=== PATIENT | female | born 1995 | race Caucasian/White ===

== ENCOUNTER 2022-11-24 07:55 | Inpatient (IN) ==
[2022-11-24] MEDS ORDERED: OXYTOCIN 30 UNITS/500 ML BAG IV PRN (09:40)
[2022-11-24] MEDS ORDERED: LIDOCAINE 1% LOCAL 20 ML VIAL INFIL PRN (09:40)
[2022-11-24] MEDS ORDERED: PENICILLIN G POTASSIUM 6 MU in DEXTROSE 5% 250 ML IV ONE (10:00)
[2022-11-24] MEDS ORDERED: DINOPROSTONE 10 MG INSERT PV ONE (10:22)
--- NOTE | 2022-11-24 10:28 | History & Physical Report ---
Date of Service November 24, 2022 Assessment & Plan Admission and Anticipated Discharge Date Admission Date: November 24, 2022 History of Present Illness Chief Complaint: induction of labor for post-dates Primary Care Provider: Mikki Barrera MD 26 F P0000 at 41 weeks admitted to L&D for induction of labor for post-dates . GBS is positive. Allergies Allergy/AdvReac Type Severity Reaction Status Date / Time amoxicillin Allergy Rash Verified 11/24/22 08:34 erythromycin base Allergy Unknown Verified 11/24/22 08:34 [From Erythrocin] Home Medications Medication Instructions Recorded Confirmed Type levothyroxine 25 mcg tablet 25 mcg PO DAILY 11/24/22 11/24/22 History [id number] 1 mg 1 tab PO DAILY 11/24/22 11/24/22 History tablet Patient History Medical History Anxiety no meds Hypothyroidism found this Panic attacks Surgical History No history of previous surgery Family History Other No known health problems Social History Smoking Status: Never smoker Hx Alcohol Use: No Hx Substance Use: No Preferred Language: Swazi Visual Impairment: Limited Thread Spooler Required: No Beliefs That Will Affect Care: None marital status: marital status details: Dk [place] Current Living Situation: Spouse Current Living Situation Comment: lives with current occupational status: employed current occupation: [email or web address] Feels Safe at Home: Yes Safety Concerns: Feels Safe At This Time Assistive Devices: Glasses OB History primip [employer] DEVELOPER History neg Review of Systems All systems reviewed & are unremarkable except as noted in HPI & below Physical Exam Constitutional: WD/WN, vitals as above Eyes: PERRL, conjunctivae normal, anicteric sclerae Respiratory: normal respiratory effort, lungs clear to auscultation Cardiovascular: RRR, no murmur, no edema Gastrointestinal (Abdomen): Inspection/Auscultation: abdomen normal to inspection Skin: no rashes, warm and dry Neurologic: patellar DTR's 2+ bilat, sensation intact Psychiatric: A+Ox3, euthymic affect Genitourinary: no vaginal lesions, no adnexal mass OB Exam Abdomen: + fundal height and + vertex Manual OB Exam: + cervical dilation fingertip, + cervical effacement 50% and + station high OB Exam Monitor Tracing: + processor inspector al FHT monitor used, + external uterine monitor used and + category I cervix l/c/t posterior/firm EFW 8 lbs. Results & Data Vital Signs (Past 12 Hours) Vital Signs Temp Pulse Resp BP O2 Del Method 11/24/22 08:25 37.1 C 18 Room Air 11/24/22 08:16 80 129/78 Code Status & VTE Plan VTE Prophylaxis Plan VTE Prophylaxis will be ordered: No Monitoring External Monitor Cat 1
[2022-11-24 10:29] LABS: Hematocrit (blood only) 35.5 % (37.0-47.0); Hemoglobin 12.2 g/dl (12.0-16.0); Mean Corpuscular Hemoglobin 27.6 pg (25.0-34.0); Mean Corpuscular Hgb Conc 34.4 g/dL (32.0-36.0); Mean Corpuscular Volume 80.3 fL (80.0-100.0); Mean Platelet Volume 10.6 fL (9.4-12.4); Platelet Count 229 K/uL (130-400); RDW Coefficient of Variation 15.1 % (11.5-14.5); RDW Standard Deviation 44.1 fL (36.4-46.3); Red Blood Count 4.42 M/uL (4.20-5.40); White Blood Count 9.18 K/ul (4.8-10.8)
--- NOTE | 2022-11-24 10:44 | Labor Progress Brief Note ---
Date of Service November 24, 2022 Assessment & Plan Admission and Anticipated Discharge Date Admission Date: November 24, 2022 Physical Exam Genitourinary: OB Exam Monitor Tracing: + external FHT monitor used, + external uterine monitor used, + category I and + normal FHT variability Cervidil 10 mg placed vaginally Results & Data Vital Signs (Past 12 Hours) Vital Signs Temp Pulse Resp BP O2 Del Method 11/24/22 08:25 37.1 C 18 Room Air 11/24/22 08:16 80 129/78
[2022-11-25] MEDS ORDERED: miSOPROStoL 50 MCG TAB PO PRN (00:01)
[2022-11-25] MEDS ORDERED: SODIUM CHLORIDE 0.9% PF INJ 10 ML VIAL ONE (05:27)
[2022-11-25] MEDS ORDERED: LIDOCAINE 2%/EPINEPHRINE 1:200,000 20 ML PF ONE (05:27)
[2022-11-25] MEDS ORDERED: fentaNYL citrate PF 100 MCG/2 ML VIAL ONE (05:27)
[2022-11-25] MEDS ORDERED: ePHEDrine sulfate 50 MG/ML AMP ONE (05:27)
[2022-11-25] MEDS ORDERED: BUPIVACAINE 0.25% PF 30 ML VIAL ONE (05:27)
[2022-11-25] MEDS ORDERED: fentaNYL 2MCG/ML ROPIVACAINE 1.25MG/ML 100 ML BAG EPI ONE (05:28)
[2022-11-25] MEDS: LACTATED RINGER'S 1,000 ML IV PRN ×4 (05:37→18:08)
[2022-11-25] MEDS ORDERED: fentaNYL 2MCG/ML ROPIVACAINE 1.25MG/ML 100 ML BAG EPI PRN (06:24)
[2022-11-25] MEDS ORDERED: LIDOCAINE 2%/EPINEPHRINE 1:200,000 20 ML PF EPI STA (06:24)
[2022-11-25] MEDS ORDERED: SODIUM CHLORIDE 0.9% PF INJ 10 ML VIAL EPI PRN (06:24)
[2022-11-25] MEDS ORDERED: ROPIVACAINE 0.5% PF 5 MG/ML 20 ML VIAL EPI PRN (06:24)
[2022-11-25] MEDS ORDERED: fentaNYL citrate PF 100 MCG/2 ML VIAL EPI PRN (06:24)
[2022-11-25] MEDS ORDERED: ePHEDrine sulfate 50 MG/ML AMP IV PRN (06:24)
[2022-11-25] MEDS ORDERED: LIDOCAINE 2% MPF LOCAL 5 ML VIAL EPI PRN (06:24)
[2022-11-25] MEDS ORDERED: diphenhydrAMINE 50 MG/ML VIAL IV PRN (06:24)
[2022-11-25] MEDS ORDERED: fentaNYL citrate PF 100 MCG/2 ML VIAL EPI STA (06:24)
[2022-11-25] MEDS ORDERED: ONDANSETRON INJ 2 MG/ML 2 ML VIAL IV PRN (06:24)
[2022-11-25] MEDS ORDERED: NALOXONE HCL 0.4 MG/1 ML VIAL/CARP IV PRN (06:24)
[2022-11-25] MEDS ORDERED: NALOXONE HCL 1 MG in SODIUM CHLORIDE 0.9% 1,000 ML IV PRN (06:24)
[2022-11-25] MEDS ORDERED: BUPIVACAINE 0.25% PF 30 ML VIAL EPI PRN (06:24)
[2022-11-25] MEDS ORDERED: SODIUM CHLORIDE 0.9% PF INJ 10 ML VIAL EPI STA (06:24)
[2022-11-25] MEDS ORDERED: BUPIVACAINE 0.25% PF 30 ML VIAL EPI STA (06:24)
[2022-11-25] MEDS ORDERED: NALBUPHINE HCL INJ 10 MG/ML AMP IV PRN (06:24)
--- NOTE | 2022-11-25 06:24 | Anesthesiology Consultation ---
Date of Service November 25, 2022 Assessment & Plan ASA ASA2 Proposed Anesthesia Anesthesia Type: Labor Epidural Risk / Benefits Reviewed With: PT / POA / Parent / Guardian, Accepts Plan and Informed Consent Obtained History Height/Weight Height: 5 ft 4 in Weight: 104.326 kg Allergies Allergy/AdvReac Type Severity Reaction Status Date / Time amoxicillin Allergy Rash Verified 11/24/22 08:34 erythromycin base Allergy Unknown Verified 11/24/22 08:34 [From Erythrocin] Medications Home Medications Medication Instructions Recorded Confirmed Last Taken levothyroxine 25 mcg tablet 25 mcg PO DAILY 11/24/22 11/24/22 11/23/22 [id number] 1 mg 1 tab PO DAILY 11/24/22 11/24/22 11/23/22 tablet Active Medications Generic Name Dose Route Start Last Admin Trade Name Freq PRN Reason Stop Dose Admin Lactated Ringer's 1,000 mls @ 125 mls/hr 11/24/22 09:40 11/25/22 05:37 Lr IV 11/26/22 09:39 999 mls/hr .Q8H PRN Administration L&D Protocol Protocol Misoprostol 50 mcg 11/25/22 00:01 11/25/22 00:01 Misoprostol 50 Mcg Tab PO 12/25/22 00:00 50 mcg Q4 PRN Administration labor Past Medical History Medical History Anxiety no meds Hypothyroidism found this Panic attacks Exercise / Class Metabolic Activity II 4-5 Yardwork/Stairs/Walk up hill Past Family History Family History Other No known health problems Past Surgical History Surgical History No history of previous surgery Past Anesthesia History No Hx of Anesthesia Complications and No Family Hx of Anesthesia Complications History of PONV No Hx of PONV and No Hx of Motion Sickness Social History Smoking Status: Never smoker Hx Alcohol Use: No Hx Substance Use: No substance use type: does not use Review of Systems denies fever/cough/ colds/ chest pain/ SOB/ RADHA denies RADHA Physical Exam Vital Signs Last Vital Signs Temp 36.8 C 11/25/22 03:01 Pulse 100 H 11/25/22 06:20 Resp 18 11/25/22 03:01 BP 128/81 11/25/22 06:23 Pulse Ox 97 11/25/22 06:19 O2 Del Method Room Air 11/24/22 08:25 ENMT Mouth: no TMJ abnormality and no dentition abnormality Thyromental Distance: > or= 3.5 Finger Breadths Mallampati Class: II Neck neck extension not limited Respiratory normal respiratory effort; no respiratory distress Auscultation: lungs clear to auscultation bilaterally Cardiovascular Rate/Rhythm: regular rate and regular rhythm Neurologic moves all extremities Psychiatric Orientation: alert and oriented x 3 Testing Laboratory Results 11/24/22 09:56 Blood Type A Positive 11/24/22 09:56 Antibody Screen NEGATIVE 11/24/22 09:56
--- NOTE | 2022-11-25 09:05 | Labor Progress Brief Note ---
Date of Service November 25, 2022 Subjective pelvic exam Assessment & Plan (1) Normal labor: Plan continue monitoring labor down second dose of antibiotics to start for GBS positive status. Admission and Anticipated Discharge Date Admission Date: November 24, 2022 Physical Exam Constitutional: WD/WN, vitals as above Genitourinary: OB Exam Abdomen: + heart tones (140s) and + vertex Manual OB Exam: + cervical dilation 8 cm, + cervical effacement 80%, + station 0 and + amniotic fluid clear OB Exam Monitor Tracing: + external FHT monitor used and + category I Results & Data Vital Signs (Past 12 Hours) Vital Signs Temp Pulse Resp BP Pulse Ox 11/25/22 08:59 85 L 11/25/22 08:59 98 H 11/25/22 08:59 92 H 77 L 11/25/22 08:54 91 H 85 L 11/25/22 08:51 88 138/87 11/25/22 08:49 89 93 11/25/22 08:44 97 H 93 11/25/22 08:43 100 H 85 L 11/25/22 08:39 100 H 92 11/25/22 08:37 88 11/25/22 08:37 103 H 115/81 86 L 11/25/22 08:34 92 H 93 11/25/22 08:29 88 94 11/25/22 08:24 84 94 11/25/22 08:20 93 H 123/76 11/25/22 08:19 81 91 11/25/22 08:14 85 94 11/25/22 08:09 104 H 92 11/25/22 08:06 85 121/77 11/25/22 08:04 78 92 11/25/22 07:59 77 94 11/25/22 07:54 99 H 98 11/25/22 07:52 106 H 115/72 11/25/22 07:49 79 94 11/25/22 07:44 99 H 95 11/25/22 07:39 85 93 11/25/22 07:36 84 117/74 11/25/22 07:34 78 93 11/25/22 07:29 80 95 11/25/22 07:24 91 H 99 11/25/22 07:22 93 H 125/72 11/25/22 07:19 78 98 11/25/22 07:14 95 H 95 11/25/22 07:09 87 97 11/25/22 07:07 36.8 C 99 H 18 131/76 11/25/22 07:04 101 H 96 11/25/22 07:02 111 H 89 L 11/25/22 06:59 98 H 97 11/25/22 06:54 84 98 11/25/22 06:53 83 137/79 11/25/22 06:49 92 H 95 11/25/22 06:44 95 H 96 11/25/22 06:39 90 98 11/25/22 06:34 100 H 130/77 95 11/25/22 06:29 87 11/25/22 06:29 92 H 127/64 94 11/25/22 06:24 97 H 95 11/25/22 06:23 98 H 128/81 11/25/22 06:20 100 H 122/71 11/25/22 06:19 84 97 11/25/22 06:18 96 H 122/71 11/25/22 06:16 92 H 127/77 11/25/22 06:14 98 H 93 11/25/22 06:15 79 128/75 11/25/22 06:12 90 133/83 11/25/22 06:09 100 H 88 L 11/25/22 06:04 88 96 11/25/22 05:59 78 97 11/25/22 05:54 77 97 11/25/22 05:49 74 96 11/25/22 05:44 82 94 11/25/22 05:39 93 H 94 11/25/22 03:01 36.8 C 78 18 131/67 11/24/22 23:49 36.7 C 88 18 116/55 L
[2022-11-25] MEDS: PENICILLIN G POTASSIUM 3 MU in DEXTROSE 5% 100 ML IV PRN ×3 (09:58→18:22)
[2022-11-25] MEDS ORDERED: OXYTOCIN 30 UNITS/500 ML BAG IV SCH (13:45)
[2022-11-25] MEDS ORDERED: OXYTOCIN 30 UNITS/500 ML BAG IV PRN (14:17)
[2022-11-25] MEDS ORDERED: NURSING L&D Epidural Breakthrough Pain Update ONE (15:14)
[2022-11-25] MEDS ORDERED: miSOPROStoL 200 MCG TAB ONE ×2 (19:11→19:36)
[2022-11-25] MEDS ORDERED: DIPHTHERIA/TETANUS/PERTUSSIS Vaccine (Tdap, Age 7+yrs) 0.5mL SYR/VL IM ONE (19:25)
[2022-11-25] MEDS ORDERED: miSOPROStoL 200 MCG TAB PR ONE (19:25)
[2022-11-25] MEDS ORDERED: BENZOCAINE 20% SPRY 85 APPLN/85 GM CAN EXT PRN (19:25)
[2022-11-25] MEDS ORDERED: ACETAMINOPHEN 325 MG TAB PO PRN (19:25)
[2022-11-25] MEDS ORDERED: bisacodyL 10 MG SUPP PR PRN (19:25)
[2022-11-25] MEDS ORDERED: HYDROCORTISONE ACETATE 25 MG SUPP PR PRN (19:25)
--- NOTE | 2022-11-25 19:35 | Obstetrical Progress Note ---
Date of Service November 25, 2022 Assessment & Plan (1) Vaginal delivery: Physical Exam Constitutional WD/WN, vitals as above Genitourinary no vaginal lesions, no adnexal mass pt fully dilated and pushing, placed in dorsal lithotomy position, prepped and draped in usual fashion, pushed for couple of hrs, delivered alive viable female infant in CRYSTAL position, placed the infant on the mothers abdomen, bulb suctioned nose and mouth, cord clamped and cut by the FOB. Placenta delivered spontaneously and complete. Heavy vaginal bleeding noted, 1000 mcg of [place] Cytotec placed , IV Pitocin started, second degree vaginal laceration noted, local lidocaine injected, repaired with 2.0 vicryl. APGARS: 8, 9 at 1 and 5 min baby born at 19: 21 Placenta delivered : 19: 24 Blood loss: 500 cc Results & Data Vital Signs (Past 12 Hours) Vital Signs Temp Pulse Resp BP Pulse Ox 11/25/22 19:22 85 L 11/25/22 19:22 104 H 11/25/22 19:22 106 H 95 11/25/22 19:19 88 123/68 11/25/22 19:17 120 H 76 L 11/25/22 19:15 114 H 87 L 11/25/22 19:12 126 H 129/63 78 L 11/25/22 19:10 119 H 85 L 11/25/22 19:07 101 H 82 L 11/25/22 19:05 99 H 87 L 11/25/22 19:02 106 H 94 11/25/22 18:57 122 H 94 11/25/22 18:52 115 H 153/98 H 92 11/25/22 18:49 110 H 86 L 11/25/22 18:46 101 H 92 11/25/22 18:43 95 H 84 L 11/25/22 18:41 110 H 135/64 11/25/22 18:39 113 H 94 11/25/22 18:38 108 H 82 L 11/25/22 18:37 117 H 188/114 H 11/25/22 18:36 121 H 194/116 H 11/25/22 18:34 109 H 94 11/25/22 18:32 101 H 84 L 11/25/22 18:28 106 H 84 L 11/25/22 18:23 89 L 11/25/22 18:23 109 H 10/05/23 18:23 104 H 92 11/25/22 18:22 97 H 115/85 11/25/22 18:18 98 H 99 11/25/22 18:17 22 11/25/22 18:17 37.0 C 22 11/25/22 18:16 111 H 77 L 11/25/22 18:13 102 H 96 11/25/22 18:11 119 H 85 L 11/25/22 18:08 106 H 97 11/25/22 18:06 93 H 85 L 11/25/22 18:04 24 11/25/22 18:04 24 11/25/22 18:03 103 H 96 11/25/22 18:00 106 H 87 L 11/25/22 17:58 111 H 98 11/25/22 17:53 122 H 88 L 11/25/22 17:51 102 H 133/73 11/25/22 17:48 103 H 97 11/25/22 17:46 107 H 84 L 11/25/22 17:42 114 H 98 11/25/22 17:37 111 H 140/81 82 L 11/25/22 17:32 109 H 86 L 11/25/22 17:25 93 H 82 L 11/25/22 17:22 101 H 88 L 11/25/22 17:21 100 H 131/100 11/25/22 17:20 103 H 89 L 11/25/22 17:17 99 H 89 L 11/25/22 17:15 106 H 97 11/25/22 17:11 93 H 87 L 11/25/22 17:10 97 H 92 11/25/22 17:07 90 141/90 H 11/25/22 17:05 94 H 94 11/25/22 17:04 99 H 87 L 11/25/22 17:00 36.9 C 101 H 20 91 11/25/22 16:59 105 H 89 L 11/25/22 16:55 101 H 100 11/25/22 16:53 103 H 85 L 11/25/22 16:51 104 H 128/82 11/25/22 16:50 102 H 99 11/25/22 16:47 101 H 86 L 11/25/22 16:45 101 H 95 11/25/22 16:40 85 L 11/25/22 16:40 90 11/25/22 16:40 89 96 11/25/22 16:36 77 140/84 11/25/22 16:35 78 98 11/25/22 16:30 77 85 L 11/25/22 16:25 73 94 11/25/22 16:21 70 20 123/68 11/25/22 16:20 81 87 L 11/25/22 16:18 77 88 L 11/25/22 16:15 72 99 11/25/22 16:10 76 99 11/25/22 16:07 77 127/69 11/25/22 16:05 83 93 11/25/22 16:03 74 89 L 11/25/22 16:00 74 97 11/25/22 15:55 68 94 11/25/22 15:51 67 131/69 11/25/22 15:50 71 93 11/25/22 15:45 86 93 11/25/22 15:40 67 95 11/25/22 15:36 70 20 106/54 L 11/25/22 15:35 84 97 11/25/22 15:30 71 95 11/25/22 15:25 69 96 11/25/22 15:20 70 11/25/22 15:20 69 105/57 L 96 11/25/22 15:15 71 97 11/25/22 15:10 72 99 11/25/22 15:06 69 20 106/59 L 11/25/22 15:04 81 88 L 11/25/22 15:05 75 95 11/25/22 15:00 37.0 C 76 18 92 11/25/22 14:58 90 148/63 H 11/25/22 14:56 97 H 85 L 11/25/22 14:55 86 99 11/25/22 14:51 77 143/78 H 11/25/22 14:50 70 95 11/25/22 14:45 69 97 11/25/22 14:42 85 89 L 11/25/22 14:40 68 96 11/25/22 14:37 65 145/76 H 11/25/22 14:35 68 97 11/25/22 14:30 84 98 11/25/22 14:25 73 99 11/25/22 14:23 78 158/82 H 11/25/22 14:20 73 98 11/25/22 14:15 84 96 11/25/22 14:12 95 H 89 L 11/25/22 14:01 18 11/25/22 14:01 36.9 C 18 11/25/22 14:10 72 97 11/25/22 14:06 96 H 130/79 11/25/22 14:05 82 96 11/25/22 14:00 86 96 11/25/22 13:55 85 99 11/25/22 13:51 69 134/80 11/25/22 13:50 75 94 11/25/22 13:45 67 95 11/25/22 13:40 88 94 11/25/22 13:37 85 145/76 H 11/25/22 13:36 84 85 L 11/25/22 13:35 96 H 100 11/25/22 13:29 83 88 L 11/25/22 13:30 87 95 11/25/22 13:25 82 98 11/25/22 13:21 79 130/80 11/25/22 13:20 84 100 11/25/22 13:15 81 97 11/25/22 13:10 75 99 11/25/22 13:06 75 139/74 11/25/22 13:05 82 96 11/25/22 13:00 76 96 11/25/22 12:59 77 86 L 11/25/22 12:55 76 100 11/25/22 12:51 87 126/78 11/25/22 12:50 79 99 11/25/22 12:45 81 99 11/25/22 12:40 81 100 11/25/22 12:37 81 123/66 11/25/22 12:35 88 98 11/25/22 12:30 79 100 11/25/22 12:25 70 95 11/25/22 12:21 71 109/55 L 87 L 11/25/22 12:20 36.8 C 77 18 98 11/25/22 12:15 71 96 11/25/22 12:10 75 96 11/25/22 12:07 72 107/54 L 11/25/22 12:05 75 99 11/25/22 12:00 77 99 11/25/22 11:55 68 98 11/25/22 11:51 78 112/59 L 11/25/22 11:50 74 99 11/25/22 11:45 72 99 11/25/22 11:41 91 H 85 L 11/25/22 11:40 75 82 L 11/25/22 11:36 81 135/73 11/25/22 11:35 85 89 L 11/25/22 11:30 86 89 L 11/25/22 11:25 83 86 L 11/25/22 11:22 80 137/87 11/25/22 11:20 84 87 L 11/25/22 11:19 84 88 L 11/25/22 11:13 74 88 L 11/25/22 11:14 78 95 11/25/22 11:09 75 95 11/25/22 11:07 83 87 L 11/25/22 11:06 72 144/80 H 11/25/22 11:04 74 91 11/25/22 10:59 74 16 95 11/25/22 10:54 82 93 11/25/22 10:52 84 142/77 H 11/25/22 10:49 71 93 11/25/22 10:44 74 92 11/25/22 10:39 82 85 L 11/25/22 10:37 74 138/76 11/25/22 10:34 84 93 11/25/22 10:29 86 89 L 11/25/22 10:24 85 94 11/25/22 10:21 81 86 L 11/25/22 10:20 74 133/78 11/25/22 10:19 73 94 11/25/22 10:14 76 94 11/25/22 10:09 89 95 11/25/22 08:02 20 11/25/22 08:02 20 11/25/22 09:01 18 11/25/22 09:01 18 11/25/22 10:00 18 11/25/22 10:00 36.7 C 18 11/25/22 10:06 90 127/74 11/25/22 10:04 95 H 95 11/25/22 09:59 100 H 94 11/25/22 09:54 79 93 11/25/22 09:51 73 127/79 11/25/22 09:49 79 91 11/25/22 09:44 77 93 11/25/22 09:39 83 92 11/25/22 09:36 91 H 138/75 11/25/22 09:33 100 H 87 L 11/25/22 09:34 101 H 95 11/25/22 09:29 105 H 92 11/25/22 09:24 100 H 86 L 11/25/22 09:22 102 H 87 L 11/25/22 09:20 93 H 144/80 H 11/25/22 09:19 104 H 89 L 11/25/22 09:16 113 H 88 L 11/25/22 09:14 117 H 84 L 11/25/22 09:09 97 H 94 11/25/22 09:06 91 H 129/73 11/25/22 09:04 89 L 11/25/22 09:04 97 H 11/25/22 09:04 100 H 82 L 11/25/22 08:59 85 L 11/25/22 08:59 98 H 11/25/22 08:59 92 H 77 L 11/25/22 08:54 91 H 85 L 11/25/22 08:51 88 138/87 11/25/22 08:49 89 93 11/25/22 08:44 97 H 93 11/25/22 08:43 100 H 85 L 11/25/22 08:39 100 H 92 11/25/22 08:37 88 11/25/22 08:37 103 H 115/81 86 L 11/25/22 08:34 92 H 93 11/25/22 08:29 88 94 11/25/22 08:24 84 94 11/25/22 08:20 93 H 123/76 11/25/22 08:19 81 91 11/25/22 08:14 85 94 11/25/22 08:09 104 H 92 11/25/22 08:06 85 121/77 11/25/22 08:04 78 92 11/25/22 07:59 77 94 11/25/22 07:54 99 H 98 11/25/22 07:52 106 H 115/72 11/25/22 07:49 79 94 11/25/22 07:44 99 H 95 11/25/22 07:39 85 93 11/25/22 07:36 84 117/74 11/25/22 07:34 78 93 11/25/22 07:29 80 95
[2022-11-25] MEDS: IBUPROFEN 600 MG TAB PO PRN (20:42)
[2022-11-25] MEDS: DOCUSATE SODIUM 100 MG CAP PO SCH (21:04)
[2022-11-26] MEDS: IBUPROFEN 600 MG TAB PO PRN ×4 (01:08→20:17)
[2022-11-26 07:36] LABS: Hematocrit (blood only) 27.3 % (37.0-47.0); Hemoglobin 9.2 g/dl (12.0-16.0); Mean Corpuscular Hemoglobin 27.8 pg (25.0-34.0); Mean Corpuscular Hgb Conc 33.7 g/dL (32.0-36.0); Mean Corpuscular Volume 82.5 fL (80.0-100.0); Mean Platelet Volume 10.7 fL (9.4-12.4); Platelet Count 173 K/uL (130-400); RDW Coefficient of Variation 15.2 % (11.5-14.5); RDW Standard Deviation 45.8 fL (36.4-46.3); Red Blood Count 3.31 M/uL (4.20-5.40); White Blood Count 18.95 K/ul (4.8-10.8)
--- NOTE | 2022-11-26 08:15 | Obstetrical Progress Note ---
Date of Service November 26, 2022 Assessment & Plan Admission and Anticipated Discharge Date Admission Date: November 24, 2022 Subjective Patient is seen and examined. She feels well, no complaints. Ambulating without dizziness Voiding without difficulty Tolerating regular diet with out N&V Bleeding is minimal No fever/ chills/ CP/ SOB/ N&V/ Leg pain Breast feeding without problems Vital Signs Temp Pulse Pulse Resp BP BP Pulse Ox 11/26/22 07:30 36.6 C 81 18 123/73 97 11/26/22 04:15 36.7 C 89 18 119/65 96 11/25/22 23:45 36.9 C 93 H 18 117/68 97 11/25/22 21:30 37.2 C 18 11/25/22 20:49 18 11/25/22 20:19 18 11/25/22 21:19 100 H 131/72 11/25/22 21:04 109 H 124/60 11/25/22 20:49 88 132/60 11/25/22 20:34 96 H 151/67 H 11/25/22 20:19 94 H 151/66 H O2 Del Method 11/26/22 07:30 Room Air 11/26/22 04:15 Room Air 11/25/22 23:45 Room Air 11/25/22 21:30 11/25/22 20:49 11/25/22 20:19 11/25/22 21:19 11/25/22 21:04 11/25/22 20:49 11/25/22 20:34 11/25/22 20:19 Lab Results 11/24/22 11/24/22 11/26/22 Range/Units 09:56 09:56 06:44 WBC 9.18 18.95 H (4.8-10.8) K/ul RBC 4.42 3.31 L (4.20-5.40) M/uL Hgb 12.2 9.2 L D (12.0-16.0) g/dl Hct 35.5 L 27.3 L (37.0-47.0) % MCV 80.3 82.5 (80.0-100.0) fL MCH 27.6 27.8 (25.0-34.0) pg MCHC 34.4 33.7 (32.0-36.0) g/dL RDW Std Deviation 44.1 45.8 (36.4-46.3) fL RDW Coeff of Yariel 15.1 H 15.2 H (11.5-14.5) % Plt Count 229 173 (130-400) K/uL MPV 10.6 10.7 (9.4-12.4) fL Blood Type A Positive Antibody Screen NEGATIVE PE: General: Alert, orientedx3, NAD Abd: soft, NT, fundus firm, below Umbilicus Perineum intact, Lochia rubra minimal Ext; NT, no edema AP: 26 yo s/p , ppd# 1 VSS Afebrile doing well CBC in am Continue routine care All questions were answered D/C home tomorrow Results & Data Vital Signs (Past 12 Hours) Vital Signs Temp Pulse Pulse Resp BP BP Pulse Ox 11/26/22 07:30 36.6 C 81 18 123/73 97 11/26/22 04:15 36.7 C 89 18 119/65 96 11/25/22 23:45 36.9 C 93 H 18 117/68 97 11/25/22 21:30 37.2 C 18 11/25/22 20:49 18 11/25/22 20:19 18 11/25/22 21:19 100 H 131/72 11/25/22 21:04 109 H 124/60 11/25/22 20:49 88 132/60 11/25/22 20:34 96 H 151/67 H 11/25/22 20:19 94 H 151/66 H O2 Del Method 11/26/22 07:30 Room Air 11/26/22 04:15 Room Air 11/25/22 23:45 Room Air 11/25/22 21:30 11/25/22 20:49 11/25/22 20:19 11/25/22 21:19 11/25/22 21:04 11/25/22 20:49 11/25/22 20:34 11/25/22 20:19
[2022-11-26] MEDS: PRENATAL VITAMIN 1 TAB PO SCH (08:33)
[2022-11-26] MEDS: DOCUSATE SODIUM 100 MG CAP PO SCH ×2 (08:33→20:19)
--- NOTE | 2022-11-26 08:58 | Anesthesia Procedure Note ---
Date of Service November 26, 2022 Anesthesia Post Epidural Note Vital Signs Vital Signs: Temp Pulse Resp BP Pulse Ox O2 Del Method 97.9 F 81 18 123/73 97 Room Air 11/26/22 07:30 11/26/22 07:30 11/26/22 07:30 11/26/22 07:30 11/26/22 07:30 11/26/22 07:30 Pain Intensity Left Lower Abdomen: Pain Intensity: 5 Episiotomy/Laceration: Pain Intensity: 3 Notes Mental Status: alert / awake / arousable and participated in evaluation Nausea / Vomiting: adequately controlled Pain: adequately controlled Airway Patency, RR, SpO2: stable & adequate BP & HR: stable & adequate Hydration State: stable & adequate Neuraxial Anesthesia: was administered and sensory block is resolving Anesthetic Complications: no major complications apparent and Pt Satisfied with anesthetic care Epidural: Removed without complications and With tip intact
[2022-11-26] MEDS ORDERED: NON-FORMULARY MEDICATION (Prenatal Multivit-Min-Fe-Fa 1 mg Tablet) PO SCH (09:00)
[2022-11-26] MEDS: LEVOTHYROXINE SODIUM 25 MCG TABLET PO SCH (12:10)
[2022-11-26] MEDS ORDERED: bisacodyL 5 MG TABEC PO SCH (20:00)
[2022-11-27] MEDS: LEVOTHYROXINE SODIUM 25 MCG TABLET PO SCH (06:37)
[2022-11-27] MEDS: IBUPROFEN 600 MG TAB PO PRN (06:37)
[2022-11-27 06:49] LABS: Basophils % (auto) 0.7 %; Eosinophils # (auto) 0.31 K/uL (0.00-0.50); Eosinophils % (auto) 2.1 %; Hematocrit (blood only) 27.5 % (37.0-47.0); Hemoglobin 9.1 g/dl (12.0-16.0); Immature Granulocytes # (auto) 0.19 K/uL (0.01-0.20); Immature Granulocytes % (auto) 1.3 %; Lymphocytes # (auto) 3.91 K/uL (1.20-3.40); Lymphocytes % (auto) 26.4 %; Mean Corpuscular Hemoglobin 27.8 pg (25.0-34.0); Mean Corpuscular Hgb Conc 33.1 g/dL (32.0-36.0); Mean Corpuscular Volume 84.1 fL (80.0-100.0); Mean Platelet Volume 10.4 fL (9.4-12.4); Monocytes # (auto) 0.87 K/uL (0.11-0.59); Monocytes % (auto) 5.9 %; Neutrophils # (auto) 9.41 K/uL (1.40-6.50); Neutrophils % (auto) 63.6 %; Platelet Count 198 K/uL (130-400); RDW Coefficient of Variation 15.4 % (11.5-14.5); RDW Standard Deviation 46.9 fL (36.4-46.3); Red Blood Count 3.27 M/uL (4.20-5.40); White Blood Count 14.79 K/ul (4.8-10.8)
[2022-11-27] MEDS: PRENATAL VITAMIN 1 TAB PO SCH (08:32)
[2022-11-27] MEDS: DOCUSATE SODIUM 100 MG CAP PO SCH (08:32)
--- NOTE | 2022-11-27 09:24 | Obstetrical Progress Note ---
Date of Service November 27, 2022 Assessment & Plan Admission and Anticipated Discharge Date Admission Date: November 24, 2022 Subjective Patient is seen and examined. She feels well, no complaints. Ambulating without dizziness Voiding without difficulty Tolerating regular diet with out N&V Bleeding is minimal No fever/ chills/ CP/ SOB/ N&V/ Leg pain Breast feeding without problems Vital Signs Temp Pulse Resp BP Pulse Ox O2 Del Method 11/27/22 07:53 36.8 C 79 18 104/66 96 Room Air 11/26/22 22:23 37 C 79 18 125/63 96 Room Air Lab Results 11/24/22 11/24/22 11/26/22 Range/Units 09:56 09:56 06:44 WBC 9.18 18.95 H (4.8-10.8) K/ul RBC 4.42 3.31 L (4.20-5.40) M/uL Hgb 12.2 9.2 L D (12.0-16.0) g/dl Hct 35.5 L 27.3 L (37.0-47.0) % MCV 80.3 82.5 (80.0-100.0) fL MCH 27.6 27.8 (25.0-34.0) pg MCHC 34.4 33.7 (32.0-36.0) g/dL RDW Std Deviation 44.1 45.8 (36.4-46.3) fL RDW Coeff of Yariel 15.1 H 15.2 H (11.5-14.5) % Plt Count 229 173 (130-400) K/uL MPV 10.6 10.7 (9.4-12.4) fL Immature Gran % (Auto) % Neut % (Auto) % Lymph % (Auto) % [place] % (Auto) % Eos % (Auto) % Baso % (Auto) % Neut # (Auto) (1.40-6.50) K/uL Lymph # (Auto) (1.20-3.40) K/uL [place] # (Auto) (0.11-0.59) K/uL Eos # (Auto) (0.00-0.50) K/uL Baso # (Auto) (0.00-0.20) K/uL Immature Gran # (Auto) (0.01-0.20) K/uL Blood Type A Positive Antibody Screen NEGATIVE 11/27/22 Range/Units 06:10 WBC 14.79 H (4.8-10.8) K/ul RBC 3.27 L (4.20-5.40) M/uL Hgb 9.1 L (12.0-16.0) g/dl Hct 27.5 L (37.0-47.0) % MCV 84.1 (80.0-100.0) fL MCH 27.8 (25.0-34.0) pg MCHC 33.1 (32.0-36.0) g/dL RDW Std Deviation 46.9 H (36.4-46.3) fL RDW Coeff of Yariel 15.4 H (11.5-14.5) % Plt Count 198 (130-400) K/uL MPV 10.4 (9.4-12.4) fL Immature Gran % (Auto) 1.3 % Neut % (Auto) 63.6 % Lymph % (Auto) 26.4 % [place] % (Auto) 5.9 % Eos % (Auto) 2.1 % Baso % (Auto) 0.7 % Neut # (Auto) 9.41 H (1.40-6.50) K/uL Lymph # (Auto) 3.91 H (1.20-3.40) K/uL [place] # (Auto) 0.87 H (0.11-0.59) K/uL Eos # (Auto) 0.31 (0.00-0.50) K/uL Baso # (Auto) 0.10 (0.00-0.20) K/uL Immature Gran # (Auto) 0.19 (0.01-0.20) K/uL Blood Type Antibody Screen PE: General: Alert, orientedx3, NAD Abd: soft, NT, fundus firm, below Umbilicus Perineum intact, Lochia rubra minimal Ext; NT, no edema AP: 26 yo s/p , ppd# 2 VSS Afebrile doing well Continue routine care All questions were answered D/C home , f/u in office Results & Data Vital Signs (Past 12 Hours) Vital Signs Temp Pulse Resp BP Pulse Ox O2 Del Method 11/27/22 07:53 36.8 C 79 18 104/66 96 Room Air 11/26/22 22:23 37 C 79 18 125/63 96 Room Air
[2022-11-27] MEDS ORDERED: MEASLES, MUMPS & RUBELLA VIRUS VACCINE (MMR) VIAL ONE (10:58)
== END 2022-11-27 11:35 | disposition home or self-care (01) | DRG 807 ==
LOC: 4S1 07:55 → 4E2 11-25 21:50